=== PATIENT | female | born 1995 | race Two or more races ===

== ENCOUNTER → 2017-12-25 | Outpatient (CLI) | payer MEDICAID ==
[2017-12-25 10:50] LABS: Basophils # (auto) 0 uL; Basophils % (auto) 0.4 % (0.0-2.0); Eosinophils # (auto) 0.1 uL; Eosinophils % (auto) 0.6 % (0.0-7.0); Hematocrit 31.1 % (36.0-46.0); Hemoglobin 10.2 g/dL (12.2-16.2); Lymphocytes # (auto) 1.8 uL; Lymphocytes % (auto) 18.5 % (10.0-50.0); Mean Corpuscular Hemoglobin 30.1 pg (28.0-32.0); Mean Corpuscular Hgb Conc. 32.7 g/dL (32.0-36.0); Mean Corpuscular Volume 92.1 fL (80.0-100.0); Monocytes # (auto) 0.7 uL; Monocytes % (auto) 7.5 % (0.0-12.0); Neutrophils # (auto) 7.1 uL; Platelet Count (auto) 376 10^3/uL (140-450); Red Blood Cells 3.38 10^6/uL (4.0-5.20); White Blood Cell 9.7 10^3/uL (4.4-10.8)
== END | disposition home or self-care (01) ==
LOC: LAB 10:00
PROVIDERS: ATTEND Obstetrics & Gynecology
DX: Z34.00 Encounter for supervision of normal first pregnancy, unspecified trimester (principal); Z3A.00 Weeks of gestation of pregnancy not specified
CPT/HCPCS: 36415; 82951; 85025; 86703; 87086

== ENCOUNTER 2018-01-07 05:07 | Observation (INO) | payer MEDICAID ==
[2018-01-07 06:31] LABS: Urine Bacteria FEW /hpf (None Seen); Urine Blood Negative /uL (Negative); Urine Mucus FEW (None Seen); Urine Specific Gravity 1.018 (1.001-1.035); Urine WBC 7 /hpf (0 - 5)
[2018-01-07 07:03] LABS: Alcohol, Urine < 3.0 mg/dL (0-5); Amphetamine Screen, Urine NEGATIVE (NEGATIVE); Barbiturate Scree,Urine NEGATIVE (NEGATIVE); Benzodiazephine Screen, Urine NEGATIVE (NEGATIVE); Cannabinoid Screen, Urine NEGATIVE (NEGATIVE); Cocaine Screen, Urine NEGATIVE (NEGATIVE); Opiate Scree,Urine NEGATIVE (NEGATIVE); Phencyclidine Screen, Urine NEGATIVE (NEGATIVE)
== END 2018-01-07 06:45 | disposition home or self-care (01) | DRG 566 ==
LOC: LDRP 05:07
PROVIDERS: ADMIT Obstetrics & Gynecology; ATTEND Obstetrics & Gynecology
DX: O26.893 Other specified pregnancy related conditions, third trimester (principal); N89.8 Other specified noninflammatory disorders of vagina; R10.10 Upper abdominal pain, unspecified; O62.9 Abnormality of forces of labor, unspecified; R06.02 Shortness of breath; Z3A.33 33 weeks gestation of pregnancy
CPT/HCPCS: 59025; 80307; 81001; 81002; G0378

== ENCOUNTER 2018-02-17 08:35 | Observation (INO) | payer MEDICAID ==
[2018-02-17] MEDS ORDERED: FERR1TAB36 PO (09:08)
[2018-02-17] MEDS ORDERED: FER325T PO (09:09)
== END 2018-02-17 10:55 | disposition home or self-care (01) | DRG 566 ==
LOC: LDRP 08:35
PROVIDERS: ADMIT Obstetrics & Gynecology; ATTEND Obstetrics & Gynecology
DX: O48.0 Post-term pregnancy (principal); Z3A.00 Weeks of gestation of pregnancy not specified
CPT/HCPCS: 59025; 76818; 81002; G0378

== ENCOUNTER 2018-02-19 15:25 | Observation (INO) | payer MEDICAID ==
[~2018-02-19 15:25] MED LIST: FER325T PO
[2018-02-20] MEDS ORDERED: DOCU-94 PO (20:01)
== END 2018-02-19 17:40 | disposition home or self-care (01) | DRG 566 ==
LOC: LDRP 15:25
PROVIDERS: ADMIT Obstetrics & Gynecology; ATTEND Obstetrics & Gynecology
DX: O48.0 Post-term pregnancy (principal); Z3A.00 Weeks of gestation of pregnancy not specified
CPT/HCPCS: 59025; 76818; 81002; G0378

== ENCOUNTER 2018-02-20 19:02 | Inpatient (IN) | payer MEDICAID ==
[~2018-02-20] VITALS: Ht 165.1 cm; Wt 90.7 kg
[~2018-02-20 19:02] MED LIST changes: +FERR1TAB36 PO
[2018-02-20] MEDS ORDERED: DOCU-94 PO (20:01)
[2018-02-20 21:13] LABS: Basophils # (auto) 0 uL; Basophils % (auto) 0.3 % (0.0-2.0); Eosinophils # (auto) 0.1 uL; Eosinophils % (auto) 0.7 % (0.0-7.0); Hematocrit 31.2 % (36.0-46.0); Hemoglobin 10.3 g/dL (12.2-16.2); Lymphocytes # (auto) 2.1 uL; Lymphocytes % (auto) 23.9 % (10.0-50.0); Mean Corpuscular Hemoglobin 28.8 pg (28.0-32.0); Mean Corpuscular Volume 87.4 fL (80.0-100.0); Monocytes # (auto) 0.8 uL; Monocytes % (auto) 9.2 % (0.0-12.0); Neutrophils # (auto) 5.8 uL; Neutrophils % (auto) 65.9 % (37.0-80.0); Nucleated Red Blood Cells % 0.1 %; Platelet Count (auto) 373 10^3/uL (140-450); Red Blood Cells 3.57 10^6/uL (4.0-5.20); Red Cell Distribution Width 16.9 % (11.8-14.3); White Blood Cell 8.7 10^3/uL (4.4-10.8)
[2018-02-20 21:22] LABS: INR 0.87 (0.9-1.15); Partial Thromboplastin Time 26.5 sec (23.78-33.04); Prothrombin Time 9.4 sec (9.27-12.13)
[2018-02-20 21:24] LABS: Albumin 2.7 g/dL (3.4-5.0); BUN/Creatinine Ratio 12.1; Bilirubin, Total 0.1 mg/dL (0.2-1.0); Calcium 8.6 mg/dL (8.5-10.1); Potassium 3.6 mmol/L (3.5-5.1); Total Protein 7.2 g/dL (6.4-8.2)
[2018-02-20] MEDS ORDERED: LACT. RINGERS/OXYTOCIN 20UNITS 1,000 ML IV SCH (23:34)
[2018-02-20] MEDS: LACTATED RINGER'S 1,000 ML IV SCH (23:34)
[2018-02-20] MEDS ORDERED: DERMOPLAST 60ML BOTTLE TOP PRN (23:45)
[2018-02-20] MEDS ORDERED: NALBUPHINE HCL 10 MG/1ml INJECTION IV PRN (23:45)
[2018-02-20] MEDS ORDERED: PHISODERM TOP SOLN 240ML BTL TOP PRN (23:45)
[2018-02-20] MEDS ORDERED: LIDOCAINE 2% (LOCAL ANESTH.) PF 5ml SDV ID ONE (23:45)
[2018-02-20] MEDS ORDERED: METHYLERGONOVINE MALEATE 0.2 MG/ML AMP IM PRN (23:45)
[2018-02-20] MEDS ORDERED: WITCH HAZEL-GLYCERIN PAD TOP PRN (23:45)
[2018-02-21 01:34] LABS: Urine Bacteria NONE SEEN /hpf (None Seen); Urine Blood Negative /uL (Negative); Urine Mucus FEW (None Seen); Urine Specific Gravity 1.017 (1.001-1.035); Urine WBC <1 /hpf (0 - 5)
[2018-02-21 01:42] LABS: Alcohol, Urine < 3.0 mg/dL (0-5); Amphetamine Screen, Urine NEGATIVE (NEGATIVE); Barbiturate Scree,Urine NEGATIVE (NEGATIVE); Benzodiazephine Screen, Urine NEGATIVE (NEGATIVE); Cannabinoid Screen, Urine NEGATIVE (NEGATIVE); Cocaine Screen, Urine NEGATIVE (NEGATIVE); Opiate Scree,Urine NEGATIVE (NEGATIVE); Phencyclidine Screen, Urine NEGATIVE (NEGATIVE)
[2018-02-21] MEDS: LACTATED RINGER'S 1,000 ML IV SCH ×4 (07:40→23:34)
[2018-02-21] MEDS ORDERED: PROMETHAZINE HCL 25 MG/ML 1ML ONE (15:16)
[2018-02-21] MEDS ORDERED: LACT. RINGERS/OXYTOCIN 20UNITS 1,000 ML IV SCH (16:18)
[2018-02-21] MEDS ORDERED: TERBUTALINE SULFATE 1 MG/ML 1ML VIAL SC ONE (16:30)
[2018-02-21] MEDS ORDERED: ePHEDrine SULFATE 50 MG/ML AMP IV ONE ×2 (18:15→20:00)
[2018-02-21] MEDS ORDERED: NALOXONE HCL 0.4 MG/ML VIAL IV ONE ×2 (18:15→20:00)
[2018-02-21] MEDS ORDERED: fentaNYL CITRATE 100 MCG/2 ML VL IV ONE ×2 (18:15→20:00)
[2018-02-21] MEDS ORDERED: fentaNYL W ROPIVACAINE 150 ML EPI SCH ×2 (18:15→20:00)
[2018-02-21] MEDS ORDERED: LIDOCAINE HCL 2 %PF INJ 10ML AMP IJ ONE ×2 (18:15→22:07)
[2018-02-21] MEDS ORDERED: SODIUM CHLORIDE 0.9% 500 ML IV PRN (19:50)
[2018-02-21] MEDS ORDERED: LIDOCAINE 2% (LOCAL ANESTH.) PF 5ml SDV IJ ONE (20:00)
[2018-02-21] MEDS ORDERED: LIDOCAINE 2% (LOCAL ANESTH.) PF 5ml SDV ID ONE (20:30)
[2018-02-21] MEDS ORDERED: METHYLERGONOVINE MALEATE 0.2 MG/ML AMP IM PRN (20:30)
[2018-02-21] MEDS ORDERED: fentaNYL CITRATE 100 MCG/2 ML VL ONE (21:44)
[2018-02-21] MEDS ORDERED: MIDAZOLAM HCL 1MG/1ML-2 ML VIAL ONE (21:44)
[2018-02-21] MEDS ORDERED: PHENYLEPHRINE HCL 10 MG/ML VL IV ONE (21:45)
[2018-02-21] MEDS ORDERED: NALBUPHINE HCL 10 MG/1ml INJECTION SUBCUT ONE (22:00)
[2018-02-21] MEDS ORDERED: ePHEDrine SULFATE 50 MG/ML AMP IV PRN (22:00)
[2018-02-21] MEDS ORDERED: DEXAMETHASONE SOD PHOS 10MG/1ML VIAL INJ IV PRN (22:00)
[2018-02-21] MEDS ORDERED: KETOROLAC TROMETH 30 MG/ML 1ML VIAL IV PRN (22:00)
[2018-02-21] MEDS ORDERED: MIDAZOLAM HCL 1MG/1ML-2 ML VIAL IV PRN (22:00)
[2018-02-21] MEDS ORDERED: HYDROmorphone HCL 2 MG/ML VL IV PRN (22:00)
[2018-02-21] MEDS ORDERED: LABETALOL HCL 5 MG/ML 4ML SYRINGE IV PRN (22:00)
[2018-02-21] MEDS ORDERED: diphenhdrAMINE HCL 50 MG/1 ML VL IV PRN (22:00)
[2018-02-21] MEDS ORDERED: NALOXONE HCL 0.4 MG/ML VIAL IV PRN (22:00)
[2018-02-21] MEDS ORDERED: ONDANSETRON HCL 4 MG/2 ML VIAL IV PRN ×2 (22:00→23:00)
[2018-02-21] MEDS ORDERED: ceFAZolin 1GM VL ONE (22:07)
[2018-02-21] MEDS ORDERED: OXYTOCIN 10 UNIT/ML 10ML VIAL ONE (22:07)
[2018-02-21] MEDS ORDERED: MORPHINE SULF(PF) 0.5MG/ML 10ML VIAL ONE (22:07)
[2018-02-21] MEDS ORDERED: ceFAZolin 1GM/100ML 50 ML IV SCH (23:00)
[2018-02-21] MEDS ORDERED: MORPHINE SULFATE 4 MG/ML SYR/VIAL IV PRN (23:00)
[2018-02-22] VITALS (14 sets, daily range): BP systolic 93–122; BP diastolic 49–71
[2018-02-22] MEDS: KETOROLAC TROMETH 30 MG/ML 1ML VIAL IV SCH ×4 (00:21→17:37)
[2018-02-22 06:18] LABS: Basophils # (auto) 0 uL; Basophils % (auto) 0.2 % (0.0-2.0); Eosinophils # (auto) 0 uL; Eosinophils % (auto) 0.1 % (0.0-7.0); Hemoglobin 8.7 g/dL (12.2-16.2); Lymphocytes # (auto) 1.8 uL; Lymphocytes % (auto) 15.5 % (10.0-50.0); Mean Corpuscular Hemoglobin 28.3 pg (28.0-32.0); Mean Corpuscular Hgb Conc. 32.3 g/dL (32.0-36.0); Mean Corpuscular Volume 87.5 fL (80.0-100.0); Monocytes # (auto) 0.7 uL; Monocytes % (auto) 5.9 % (0.0-12.0); Neutrophils # (auto) 9.1 uL; Neutrophils % (auto) 78.3 % (37.0-80.0); Nucleated Red Blood Cells % 0.1 %; Platelet Count (auto) 284 10^3/uL (140-450); Red Blood Cells 3.09 10^6/uL (4.0-5.20); Red Cell Distribution Width 17.3 % (11.8-14.3); White Blood Cell 11.7 10^3/uL (4.4-10.8)
[2018-02-22] MEDS: LACTATED RINGER'S 1,000 ML IV SCH ×4 (06:59→23:34)
[2018-02-22] MEDS ORDERED: MORPHINE SULFATE INJECTION 1 ML ONE (09:49)
[2018-02-22] MEDS: MORPHINE SULFATE 8mg/ml INJ SDV IV PRN ×2 (09:53→15:19)
[2018-02-22] MEDS ORDERED: TETANUS-DIPTH-ACEL PERTUSSIS 0.5ML SYRG IM ONE (12:00)
[2018-02-22] MEDS: ceFAZolin 1GM/100ML 50 ML IV SCH ×2 (15:20→22:30)
[2018-02-22] MEDS ORDERED: HYDROcodone-ACET 5/325MG TAB PO PRN (18:15)
[2018-02-22] MEDS ORDERED: BISACODYL 10 MG RECT SUPP PR PRN ×2 (18:15→20:45)
[2018-02-22] MEDS: HYDROcodone-ACET 5/325MG TAB PO PRN (19:10)
[2018-02-22] MEDS: IBUPROFEN 800 MG TAB PO PRN (20:30)
[2018-02-22] MEDS: SIMETHICONE 80 MG CHEWABLE TABLET PO SCH (22:30)
[2018-02-22] MEDS: DOCUSATE SOD 100 MG CAP PO SCH (22:30)
[2018-02-23] VITALS (7 sets, daily range): BP systolic 105–120; BP diastolic 59–66
[2018-02-23] MEDS: HYDROcodone-ACET 5/325MG TAB PO PRN ×4 (00:50→16:40)
[2018-02-23] MEDS: IBUPROFEN 800 MG TAB PO PRN ×3 (04:15→23:27)
[2018-02-23] MEDS: SIMETHICONE 80 MG CHEWABLE TABLET PO SCH ×4 (05:35→22:20)
[2018-02-23] MEDS: LACTATED RINGER'S 1,000 ML IV SCH ×2 (07:34→15:34)
[2018-02-23] MEDS: DOCUSATE SOD 100 MG CAP PO SCH ×2 (09:43→22:20)
[2018-02-23] MEDS: DOCUSATE CALCIUM 240 MG CAP PO SCH (09:43)
[2018-02-24 03:00] VITALS: BP 107/61
[2018-02-24 03:57] VITALS: BP 103/61
[2018-02-24] MEDS: SIMETHICONE 80 MG CHEWABLE TABLET PO SCH ×2 (05:47→12:00)
[2018-02-24 07:00] VITALS: BP 111/66
[2018-02-24] MEDS: HYDROcodone-ACET 5/325MG TAB PO PRN (07:25)
[2018-02-24] MEDS: DOCUSATE CALCIUM 240 MG CAP PO SCH (09:51)
[2018-02-24] MEDS: DOCUSATE SOD 100 MG CAP PO SCH (09:51)
[2018-02-24 11:00] VITALS: BP 115/58
[2018-02-24] MEDS: IBUPROFEN 800 MG TAB PO PRN (12:59)
== END 2018-02-24 14:30 | disposition home or self-care (01) | DRG 540 ==
LOC: OBSVTOIN 19:02 → LDRP 19:02 → NUR 02-21 12:18 → LDRP 02-21 12:33
PROVIDERS: ADMIT Obstetrics & Gynecology; ATTEND Obstetrics & Gynecology
PROC: 10D00Z1 Extraction of Products of Conception, Low, Open Approach (ICD-10-PCS; principal; 2018-02-21 21:45)
DX: O62.0 Primary inadequate contractions (principal); O48.0 Post-term pregnancy; Z37.0 Single live birth; O99.02 Anemia complicating childbirth; O36.60X0 Maternal care for excessive fetal growth, unspecified trimester, not applicable or unspecified; Z23 Encounter for immunization
CPT/HCPCS: 36415; 51702; 59025; 62282; 76818; 80053; 80307; 81001; 85025; 85610; 85730; 86850; 86900; 86901; 90471; 90472; 90715; 94760; 96361; 96365; 96366; 96372; 96374; 96375; 96376; G0378; J0690; J1885; J2250; J2270; J2590; J3010

== ENCOUNTER 2019-06-02 03:09 | Emergency (ER) | payer SELFPAY ==
[~2019-06-02] VITALS: Ht 165.1 cm; Wt 81.6 kg
[~2019-06-02 03:09] MED LIST changes: +DOCU-94 PO; -FERR1TAB36 PO
[2019-06-02 03:13] VITALS: BP 115/78
[2019-06-02] MEDS ORDERED: KETOROLAC TROMETH 60MG/2ML VIAL IM ONE (07:30)
[2019-06-02] MEDS ORDERED: cefTRIAXone SOD 1,000 MG VL IM ONE (07:30)
== END 2019-06-02 08:05 | disposition home or self-care (01) ==
LOC: ER 03:13
DX: J02.9 Acute pharyngitis, unspecified (principal); K08.89 Other specified disorders of teeth and supporting structures
CPT/HCPCS: 96372; 99283; J0696; J1885

== ENCOUNTER 2019-07-18 20:47 | Emergency (ER) | payer SELFPAY ==
[~2019-07-18] VITALS: Ht 165.1 cm; Wt 81.6 kg
[2019-07-19] MEDS ORDERED: ACETAMINOPHEN 325 MG TAB PO ONE ×2 (06:15→06:30)
[2019-07-19 07:10] LABS: Basophils # (auto) 0.1 uL; Basophils % (auto) 1.3 % (0.0-2.0); Eosinophils # (auto) 0.1 uL; Eosinophils % (auto) 1.3 % (0.0-7.0); Hematocrit 40.4 % (36.0-46.0); Hemoglobin 13.2 g/dL (12.2-16.2); Lymphocytes # (auto) 2.7 uL; Lymphocytes % (auto) 26.1 % (10.0-50.0); Mean Corpuscular Hemoglobin 30.3 pg (28.0-32.0); Mean Corpuscular Hgb Conc. 32.8 g/dL (32.0-36.0); Mean Corpuscular Volume 92.4 fL (80.0-100.0); Monocytes # (auto) 0.9 uL; Monocytes % (auto) 8.7 % (0.0-12.0); Neutrophils # (auto) 6.4 uL; Neutrophils % (auto) 62.6 % (37.0-80.0); Platelet Count (auto) 363 10^3/uL (140-450); Red Blood Cells 4.37 10^6/uL (4.0-5.20); Red Cell Distribution Width 14.4 % (11.8-14.3); White Blood Cell 10.3 10^3/uL (4.4-10.8)
[2019-07-19 07:17] LABS: Albumin 3.9 g/dL (3.4-5.0); BUN/Creatinine Ratio 12.1; Potassium 3.9 mmol/L (3.5-5.1)
[2019-07-19 07:20] LABS: Bilirubin, Total 0.3 mg/dL (0.2-1.0); Total Protein 8.3 g/dL (6.4-8.2)
[2019-07-19 11:00] VITALS: BP 101/50
== END 2019-07-19 11:13 | disposition home or self-care (01) ==
LOC: ER 20:47
DX: O26.891 Other specified pregnancy related conditions, first trimester (principal); R10.9 Unspecified abdominal pain; Z90.89 Acquired absence of other organs; Z3A.01 Less than 8 weeks gestation of pregnancy
CPT/HCPCS: 36415; 76801; 80053; 81025; 84702; 85025

== ENCOUNTER 2020-02-07 20:50 | Observation (INO) | payer MEDICAID ==
[~2020-02-07] VITALS: Ht 165.1 cm; Wt 89.4 kg
[2020-02-07] MEDS ORDERED: LACTATED RINGER'S 1,000 ML IV ONE (21:32)
[2020-02-07] MEDS ORDERED: ACETAMINOPHEN 325 MG TAB PO ONE (21:45)
== END 2020-02-07 23:40 | disposition home or self-care (01) | DRG 566 ==
LOC: LDRP 20:50
PROVIDERS: ADMIT Obstetrics & Gynecology; ATTEND Obstetrics & Gynecology
DX: O26.893 Other specified pregnancy related conditions, third trimester (principal); R10.30 Lower abdominal pain, unspecified; Z3A.38 38 weeks gestation of pregnancy
CPT/HCPCS: 59025; 81002; G0378; 96361; 96366

== ENCOUNTER 2020-02-09 13:25 | Inpatient (IN) | payer MEDICAID ==
[~2020-02-09] VITALS: Ht 165.1 cm; Wt 89.8 kg
[2020-02-09] MEDS ORDERED: LACTATED RINGER'S 1,000 ML IV SCH ×3 (15:23→20:54)
[2020-02-09 16:16] LABS: Urine WBC None Seen /hpf (0 - 5)
[2020-02-09 16:33] LABS: Basophils # (auto) 0 10 ^3/uL (0-0.2); Basophils % (auto) 0.3 % (0.0-2.0); Eosinophils # (auto) 0 10 ^3/uL (0-0.8); Eosinophils % (auto) 0.4 % (0.0-7.0); Hematocrit 34.6 % (36.0-46.0); Hemoglobin 11.2 g/dL (12.2-16.2); Lymphocytes # (auto) 1.5 10 ^3/uL (0.4-5.4); Lymphocytes % (auto) 18.9 % (10.0-50.0); Mean Corpuscular Hemoglobin 29.9 pg (28.0-32.0); Mean Corpuscular Hgb Conc. 32.4 g/dL (32.0-36.0); Mean Corpuscular Volume 92.4 fL (80.0-100.0); Monocytes # (auto) 0.5 10 ^3/uL (0-1.3); Monocytes % (auto) 6.1 % (0.0-12.0); Neutrophils % (auto) 74.3 % (37.0-80.0); Platelet Count (auto) 285 10^3/uL (140-450); Red Blood Cells 3.74 10^6/uL (4.0-5.20); Red Cell Distribution Width 16.6 % (11.8-14.3); White Blood Cell 8.1 10^3/uL (4.4-10.8)
[2020-02-09 16:35] LABS: INR 0.93 (0.9-1.15); Partial Thromboplastin Time 25.7 sec (23.64-32.05)
[2020-02-09 16:37] LABS: Calcium 8.6 mg/dL (8.5-10.1); Potassium 3.7 mmol/L (3.5-5.1)
[2020-02-09 16:39] LABS: Albumin 2.8 g/dL (3.4-5.0); BUN/Creatinine Ratio 14.9
[2020-02-09 16:42] LABS: Bilirubin, Total 0.3 mg/dL (0.2-1.0); Total Protein 7.6 g/dL (6.4-8.2)
[2020-02-09 17:02] LABS: Urine Bacteria NONE SEEN /hpf (None Seen); Urine Blood Negative /uL (Negative); Urine Mucus FEW (None Seen); Urine Specific Gravity 1.022 (1.001-1.035)
[2020-02-09] MEDS ORDERED: TERBUTALINE SULFATE 1 MG/ML 1ML VIAL SC ONE (18:43)
[2020-02-09] MEDS ORDERED: TERBUTALINE SULFATE 1 MG/ML 1ML VIAL SC SCH (18:45)
[2020-02-09] MEDS ORDERED: fentaNYL CITRATE 100 MCG/2 ML VL ONE (19:43)
[2020-02-09] MEDS ORDERED: MORPHINE SULF(PF) 0.5MG/ML 10ML VIAL ONE (19:43)
[2020-02-09] MEDS ORDERED: EPINEPHrine HCL 1 MG/1 ML AMP IM ONE (19:45)
[2020-02-09] MEDS ORDERED: OXYTOCIN 10UNIT/ML 1ML VIAL IV ONE (19:45)
[2020-02-09] MEDS ORDERED: diphenhdrAMINE HCL 50 MG/1 ML VL IV ONE (19:45)
[2020-02-09] MEDS ORDERED: ceFAZolin 1GM VL IV ONE (19:45)
[2020-02-09] MEDS ORDERED: NALOXONE HCL 0.4 MG/ML VIAL IV PRN (21:00)
[2020-02-09] MEDS ORDERED: ACETAMINOPHEN IV 1000 MG/100ML (10MG/ML) IV PRN (21:00)
[2020-02-09] MEDS ORDERED: ceFAZolin 1GM/50ML 50 ML IV SCH (21:00)
[2020-02-09] MEDS ORDERED: ONDANSETRON HCL 4 MG/2 ML VIAL IV PRN ×2 (21:00)
[2020-02-09] MEDS ORDERED: KETOROLAC TROMETH 30 MG/ML 1ML VIAL IV PRN (21:00)
[2020-02-09] MEDS ORDERED: diphenhdrAMINE HCL 50 MG/1 ML VL IV PRN (21:00)
[2020-02-09] MEDS ORDERED: OXYTOCIN 10UNIT/ML 1ML VIAL ONE (21:28)
[2020-02-09 21:50] VITALS: BP 103/60
[2020-02-09 22:00] VITALS: BP 108/57
[2020-02-09 23:00] VITALS: BP 104/55
[2020-02-09] MEDS: HYDROmorphone HCL 2 MG/ML VL IV PRN (23:03)
[2020-02-10] VITALS (12 sets, daily range): BP systolic 90–111; BP diastolic 50–66
[2020-02-10] MEDS: ceFAZolin 1GM/50ML 50 ML IV SCH ×3 (03:43→19:45)
[2020-02-10] MEDS: HYDROmorphone HCL 2 MG/ML VL IV PRN ×3 (04:40→14:49)
[2020-02-10 05:06] LABS: RPR Non Reactive (Non Reactive)
[2020-02-10 07:08] LABS: Basophils # (auto) 0 10 ^3/uL (0-0.2); Basophils % (auto) 0.3 % (0.0-2.0); Eosinophils # (auto) 0 10 ^3/uL (0-0.8); Eosinophils % (auto) 0.3 % (0.0-7.0); Hematocrit 31.5 % (36.0-46.0); Hemoglobin 10.5 g/dL (12.2-16.2); Lymphocytes # (auto) 1.4 10 ^3/uL (0.4-5.4); Lymphocytes % (auto) 15.5 % (10.0-50.0); Mean Corpuscular Hemoglobin 30.3 pg (28.0-32.0); Mean Corpuscular Hgb Conc. 33.2 g/dL (32.0-36.0); Mean Corpuscular Volume 91.3 fL (80.0-100.0); Monocytes # (auto) 0.4 10 ^3/uL (0-1.3); Monocytes % (auto) 4.5 % (0.0-12.0); Neutrophils % (auto) 79.4 % (37.0-80.0); Nucleated Red Blood Cells % 0.1 %; Platelet Count (auto) 248 10^3/uL (140-450); Red Blood Cells 3.45 10^6/uL (4.0-5.20); Red Cell Distribution Width 16.7 % (11.8-14.3); White Blood Cell 8.7 10^3/uL (4.4-10.8)
[2020-02-10] MEDS ORDERED: LACTATED RINGER'S 1,000 ML IV SCH (07:20)
[2020-02-10] MEDS ORDERED: BISACODYL 10 MG RECT SUPP PR PRN (20:00)
[2020-02-10] MEDS ORDERED: HYDROcodone-ACET 5/325MG TAB PO PRN (20:00)
[2020-02-10] MEDS: HYDROcodone-ACET 5/325MG TAB PO PRN (20:18)
[2020-02-10] MEDS: DOCUSATE SOD 100 MG CAP PO SCH (22:06)
[2020-02-10] MEDS: SIMETHICONE 80 MG CHEWABLE TABLET PO SCH (22:06)
[2020-02-10] MEDS: IBUPROFEN 800 MG TAB PO PRN (22:35)
[2020-02-11] VITALS (7 sets, daily range): BP systolic 93–125; BP diastolic 56–78
[2020-02-11] MEDS: SIMETHICONE 80 MG CHEWABLE TABLET PO SCH ×4 (05:59→21:40)
[2020-02-11] MEDS: IBUPROFEN 800 MG TAB PO PRN ×2 (07:27→18:55)
[2020-02-11] MEDS: DOCUSATE SOD 100 MG CAP PO SCH ×2 (08:27→21:38)
[2020-02-11] MEDS: HYDROcodone-ACET 5/325MG TAB PO PRN ×4 (08:28→21:39)
[2020-02-12] MEDS: HYDROcodone-ACET 5/325MG TAB PO PRN ×2 (01:40→08:31)
[2020-02-12 03:00] VITALS: BP 105/48
[2020-02-12] MEDS: IBUPROFEN 800 MG TAB PO PRN (05:29)
[2020-02-12 06:36] VITALS: BP 90/45
[2020-02-12] MEDS: DOCUSATE SOD 100 MG CAP PO SCH (09:53)
== END 2020-02-12 10:09 | disposition home or self-care (01) | DRG 540 ==
LOC: LDRP 13:25 → OBSVTOIN 15:14 → LDRP 20:11
PROVIDERS: ADMIT Specialist; ATTEND Specialist
PROC: 10D00Z1 Extraction of Products of Conception, Low, Open Approach (ICD-10-PCS; principal; 2020-02-09 19:37)
DX: O34.211 Maternal care for low transverse scar from previous cesarean delivery (principal); Z37.0 Single live birth; Z3A.38 38 weeks gestation of pregnancy
CPT/HCPCS: 36415; 51702; 59025; 80053; 81001; 81002; 84112; 85025; 85610; 85730; 86592; 86850; 86900; 86901; 94760; 96361; 96365; 96366; 96375; G0378; J0131; J0171; J0690